=== PATIENT | female | born 1930 | race Caucasian/White ===

== ENCOUNTER 2018-07-14 20:27 | Emergency (ER) | payer OTHER ==
[~2018-07-14] VITALS: Ht 157.5 cm; Wt 60.2 kg
[2018-07-14] MEDS ORDERED: FAMO-79 PO (20:55)
[2018-07-14] MEDS ORDERED: LOSARTAN PO (20:55)
[2018-07-14] MEDS ORDERED: SIMV20TA3 PO (20:55)
[2018-07-14] MEDS ORDERED: AMLODIPINE PO (20:55)
[2018-07-14] MEDS ORDERED: DIPH,PERTUSS(ACELL),TET VAC/PF 0.5 ML IM-VACC ONE (21:00)
[2018-07-14] MEDS ORDERED: LIDOCAINE 1%, 10ML INFIL ONE (21:00)
[2018-07-14] MEDS ORDERED: LIDOCAINE-MPF 1%, 5ML ONE (21:04)
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
--- NOTE | 2018-07-14 21:17 | NUR ---
PT BACK FROM CT.
[2018-07-14] MEDS ORDERED: LIDOCAINE 1%-EPI 1:100K, 20ML ONE (21:30)
--- NOTE | 2018-07-14 22:15 | NUR ---
WILL PLACED BY PA. PT TOLERATED WELL.
[2018-07-14] MEDS ORDERED: BACITRACIN ZINC OINT 500U/GM, 0.9 GM ONE (22:38)
[2018-07-14 22:50] VITALS: BP 155/78
== END 2018-07-14 22:52 | disposition home or self-care (01) ==
LOC: ED 22:46
DX: S01.01XA Laceration without foreign body of scalp, initial encounter (principal); I10 Essential (primary) hypertension; W01.0XXA Fall on same level from slipping, tripping and stumbling without subsequent striking against object, initial encounter; Y93.89 Activity, other specified; Y92.89 Other specified places as the place of occurrence of the external cause; Y99.8 Other external cause status
CPT/HCPCS: 12002; 70450; 72125; 99284